=== PATIENT | male | born 1935 | race Caucasian/White ===

== ENCOUNTER 2020-08-26 23:32 | Observation (INO) | payer MEDICARE, BC ==
[~2020-08-26] VITALS: Ht 167.6 cm; Wt 56.5 kg
[~2020-08-26 23:32] MED LIST: ACET325T9 PO; ATOR20TA58 PO; DILT60TA3 PO; RAMI10CA53 PO
[2020-08-27] MEDS ORDERED: IV NORMAL SALINE 1000ML BAG 1,000 ML IV SCH
--- NOTE | 2020-08-27 00:17 | RAD ---
XR CHEST 1V Clinical History: Reason: CHEST PAIN ER#23 / Spl. Instructions: / History: Technique: AP view of the chest was obtained at 08/26/2020 11:56 PM. Comparison: None. Findings: There is a left-sided pacemaker. There is air projecting over the lower chest which could be within t he pericardium or could be related to a large hernia. The heart size is difficult to assess. The pulm onary vessels appear normal. There is a curvilinear opacity over the upper left lung which is felt to be a skinfold. Impression: 1. Air projecting over the lower lungs. It is unclear if this could be air within the pericardium whi ch could cause tamponade or if this could be a large diaphragmatic hernia. Comparison to an old chest x-ray would be very helpful. 2. No pneumothorax. Electronically signed by: Jonah Rowley III, MD (08/27/2020 12:15 AM) [facility]
[2020-08-27 00:20] LABS: CALCIUM 9.5 mg/dL (8.5-10.1); CREATININE 0.8 mg/dL (0.7-1.3); GFR 91.7; POTASSIUM 4.7 mmol/L (3.5-5.1)
[2020-08-27 00:21] LABS: BASO % 0 % (0-3); EOS # 0.1 x10^3/uL (0.0-0.7); EOS % 1 % (0-3); HEMATOCRIT 45.3 % (39.0-53.0); HEMOGLOBIN 15.1 g/dL (13.0-17.5); LYMPH # 1.1 x10^3/uL (1.0-4.8); LYMPH % 8 % (24-48); MEAN CORPUSCULAR HEMOGLOBIN 32 pg (25-35); MEAN CORPUSCULAR HGB CONC 33 g/dL (31-37); MEAN CORPUSCULAR VOLUME 95 fL (79-100); MONO # 0.8 x10^3/uL (0.0-1.1); MONO % 6 % (0-9); NEUT # 11.5 x10^3/uL (1.8-7.7); NEUT % 85 % (31-73); PLATELET COUNT 172 x10^3/uL (140-400); RED BLOOD COUNT 4.79 x10^6/uL (4.30-5.70); RED CELL DISTRIBUTION WIDTH 14.1 % (11.5-14.5); WHITE BLOOD COUNT 13.5 x10^3/uL (4.0-11.0)
[2020-08-27 00:26] LABS: ALBUMIN 4.1 g/dL (3.4-5.0); ALBUMIN/GLOBULIN RATIO 1.9 (1.0-1.7); MAGNESIUM 2.3 mg/dL (1.8-2.4); TOTAL PROTEIN 6.3 g/dL (6.4-8.2)
[2020-08-27] MEDS ORDERED: METOCLOPRAMIDE HCL 10 MG/2 ML VIAL. IVP ONE (00:30)
[2020-08-27] MEDS ORDERED: ACETAMINOPHEN 500 MG TABLET PO ONE (01:15)
[2020-08-27] MEDS ORDERED: MORPHINE SULFATE 4 MG/ML VIAL. IV ONE (01:30)
--- NOTE | 2020-08-27 01:52 | EKG ---
[facility] [address] [place] [address] Test Date: 2020-08-26 Test Time: 23:47:35 Pat Name: APRYL DELGADO Department: Room: Gender: M Lpn Home Health: : 1935 Requested By: KEN JIMENEZ Order Number: [id number] Reading MD: Measurements Intervals [place] Rate: 70 P: ND: QRS: -60 QRSD: 148 T: 117 QT: 472 QTc: 513 Interpretive Statements REGULAR RHYTHM, NO P WAVE FOUND ABNORMAL LEFT AXIS DEVIATION NON SPECIFIC INTRAVENTRICULAR BLOCK CONSIDER RIGHT VENTRICULAR HYPERTROPHY ABNORMAL ECG RI6.01 No previous ECG available for comparison
--- NOTE | 2020-08-27 02:42 | PHYS DOC ---
Past Medical History Past Medical History: CAD, CHF Past Surgical History: Other Additional Past Surgical Histo: Pt does not remember Smoking Status: Never Smoker Alcohol Use: None Adult General Chief Complaint Chief Complaint: CHEST PAIN HPI HPI Patient is a 84 year old male with a past medical history of coronary artery disease, defibrillator placement, hypertension presenting the emergency d epartment new onset chest pain. Patient states that at 8:30 PM yesterday and started noting pain to left anterior chest with radiation to left shoulder as well as the right shoulder. States that it was associated with mild intermittent nausea without any episodes of vomiting. Denies any dizziness or lightheadedness. Patient was given 2 nitro and symptoms improved by the time he arrived to the emergency department. Patient states that his symptoms remind him of his prior heart attack. Does note he had a cough for the last few days but denies any shortness of breath. Review of Systems Review of Systems Constitutional: Denies fever or chills [] Eyes: Denies change in visual acuity, redness, or eye pain [] HENT: Denies nasal congestion or sore throat [] Respiratory: Denies cough or shortness of breath [] Cardiovascular: No additional information not addressed in HPI [] GI: Denies abdominal pain, nausea, vomiting, bloody stools or diarrhea [] : Denies dysuria or hematuria [] Musculoskeletal: Denies back pain or joint pain [] Integument: Denies rash or skin lesions [] Neurologic: Denies headache, focal weakness or sensory changes [] Endocrine: Denies polyuria or polydipsia [] All other systems were reviewed and found to be within normal limits, except as documented in this note. Current Medications Current Medications Current Medications Medications (Trade) Dose Ordered Sig/Prince Start Time Stop Time Status Last Admin Dose Admin Acetaminophen (Tylenol) 1,000 mg 1X ONCE 08/27/20 01:15 08/27/20 01:16 DC Metoclopramide HCl (Reglan Vial) 10 mg 1X ONCE 08/27/20 00:30 08/27/20 00:31 DC 08/27/20 00:23 10 MG Morphine Sulfate (Morphine Sulfate) 4 mg 1X ONCE 08/27/20 01:30 08/27/20 01:31 DC 08/27/20 01:22 4 MG Sodium Chloride 1,000 ml @ 1,000 mls/hr Q1H 08/27/20 00:00 08/27/20 00:59 DC 08/27/20 00:23 1,000 MLS/HR Allergies Allergies Allergies Coded Allergies Type Severity Reaction Last Updated Verified ciprofloxacin Allergy Unknown 07/16/14 No Physical Exam Physical Exam Constitutional: Well developed, well nourished, no acute distress, non-toxic appearance. [] HENT: Normocephalic, atraumatic, bilateral external ears normal, oropharynx moist, no oral exudates, nose normal. [] Eyes: PERRLA, EOMI, conjunctiva normal, no discharge. [] Neck: Normal range of motion, no tenderness, supple, no stridor. [] Cardiovascular:Heart rate regular rhythm, no murmur [] Lungs & Thorax: Bilateral breath sounds clear to auscultation [] Abdomen: Bowel sounds normal, soft, no tenderness, no masses, no pulsatile masses. [] Skin: Warm, dry, no erythema, no rash. [] Back: No tenderness, no CVA tenderness. [] Extremities: No tenderness, no cyanosis, no clubbing, ROM intact, no edema. [] Neurologic: Alert and oriented X 3, normal motor function, normal sensory function, no focal deficits noted. [] Psychologic: Affect normal, judgement normal, mood normal. [] Current Patient Data Vital Signs Vital Signs Date Time Temp Pulse Resp B/P (MAP) Pulse Ox O2 Delivery O2 Flow Rate FiO2 08/26/20 23:35 98.2 72 16 126/86 (99) Room Air 98.2 Lab Values Laboratory Tests Test 08/27/20 00:05 White Blood Count 13.5 x10^3/uL (4.0-11.0) H Red Blood Count 4.79 x10^6/uL (4.30-5.70) Hemoglobin 15.1 g/dL (13.0-17.5) Hematocrit 45.3 % (39.0-53.0) Mean Corpuscular Volume 95 fL (79-100) Mean Corpuscular Hemoglobin 32 pg (25-35) Mean Corpuscular Hemoglobin Concent 33 g/dL (31-37) Red Cell Distribution Width 14.1 % (11.5-14.5) Platelet Count 172 x10^3/uL (140-400) Neutrophils (%) (Auto) 85 % (31-73) H Lymphocytes (%) (Auto) 8 % (24-48) L Monocytes (%) (Auto) 6 % (0-9) Eosinophils (%) (Auto) 1 % (0-3) Basophils (%) (Auto) 0 % (0-3) Neutrophils # (Auto) 11.5 x10^3/uL (1.8-7.7) H Lymphocytes # (Auto) 1.1 x10^3/uL (1.0-4.8) Monocytes # (Auto) 0.8 x10^3/uL (0.0-1.1) Eosinophils # (Auto) 0.1 x10^3/uL (0.0-0.7) Basophils # (Auto) 0.0 x10^3/uL (0.0-0.2) Platelet Estimate Pending Sodium Level 144 mmol/L (136-145) Potassium Level 4.7 mmol/L (3.5-5.1) Chloride Level 109 mmol/L (98-107) H Carbon Dioxide Level 27 mmol/L (21-32) Anion Gap 8 (6-14) Blood Urea Nitrogen 21 mg/dL (8-26) Creatinine 0.8 mg/dL (0.7-1.3) Estimated GFR (Cockcroft-Gault) 91.7 BUN/Creatinine Ratio 26 (6-20) H Glucose Level 145 mg/dL (70-99) H Calcium Level 9.5 mg/dL (8.5-10.1) Magnesium Level 2.3 mg/dL (1.8-2.4) Total Bilirubin 1.0 mg/dL (0.2-1.0) Aspartate Amino Transferase (AST) 32 U/L (15-37) Alanine Aminotransferase (ALT) 41 U/L (16-63) Alkaline Phosphatase 69 U/L (46-116) Troponin I Quantitative < 0.017 ng/mL (0.000-0.055) Total Protein 6.3 g/dL (6.4-8.2) L Albumin 4.1 g/dL (3.4-5.0) Albumin/Globulin Ratio 1.9 (1.0-1.7) H Lipase 107 U/L (73-393) Laboratory Tests 08/27/20 00:05 Laboratory Tests 08/27/20 00:05 EKG EKG [] Radiology/Procedures Radiology/Procedures XR CHEST 1V Clinical History: Reason: CHEST PAIN ER#23 / Spl. Instructions: / History: Technique: AP view of the chest was obtained at 08/26/2020 11:56 PM. Comparison: None. Findings: There is a left-sided pacemaker. There is air projecting over the lower chest which could be within the pericardium or could be related to a large hernia. The heart size is difficult to assess. The pulmonary vessels appear normal. There is a curvilinear opacity over the upper left lung which is felt to be a skinfold. Impression: 1. Air projecting over the lower lungs. It is unclear if this could be air within the pericardium which could cause tamponade or if this could be a large diaphragmatic hernia. Comparison to an old chest x-ray would be very helpful. 2. No pneumothorax. Electronically signed by: Suman Rowley III, MD (08/27/2020 12:15 AM) [facility] Course & Med Decision Making Course & Med Decision Making Pertinent Labs and Imaging studies reviewed. (See chart for details) 84M presenting with new onset of chest pain which is raise concern for acute co ronary syndrome. Work-up was obtained and troponin at this time is negative. EKG without any evidence of ST elevation MO. Because the patient's significant cardiac history will plan for admission for chest pain observation. Dragon Disclaimer Dragon Disclaimer This electronic medical record was generated, in whole or in part, using a voice recognition dictation system. Departure Departure Impression: Primary Impression: Chest pain Disposition: ADMITTED INPATIENT Condition: STABLE Referrals: SUMAN ARRIETA (PCP) KEN JIMENEZ MD Aug 27, 2020 02:42
[2020-08-27] MEDS ORDERED: ONDANSETRON PF 4 MG/2 ML VIAL. IV PRN (02:45)
[2020-08-27 03:22] LABS: % BANDS 8 % (0-9); % SEGS 77 % (35-66); PLT ESTIMATE ADEQUATE (ADEQUATE)
[2020-08-27 03:23] LABS: % LYMPHS 9 % (24-48); % MONOS 6 % (0-10)
[2020-08-27 03:59] VITALS: BP 133/86
[2020-08-27 07:00] VITALS: BP 130/72
--- NOTE | 2020-08-27 08:08 | PDOC1 ---
History and Physical Date of Admission Date of Admission DATE: 08/27/20 TIME: 08:04 Identification/Chief Complaint Chief Complaint Chest pain Source Source: Patient History of Present Illness History of Present Illness Mr Resendez is an 84yo M w/ PMHx SSS s/p PPM 2006, PUD s/p GI bleed and h. pylori treatment, persistent afib, HLD, HTN, CAD s/p LAD stenting remotely who presents to ED c/o left anterior chest pain that began at 2030 in the evening while watching television after eating jello for dinner. Had pain to left anterior chest with radiation to left shoulder as well as the right shoulder. States that it was associated with mild intermittent nausea without any episodes of vomiting. Denies any dizziness or lightheadedness. S/p 2 nitro and symptoms improved by the time he arrived to the emergency department. He received only 1 dose of morphine and it did not recur. Patient states that his symptoms remind him of his prior heart attack. Does note he had a cough for the last few days but denies any shortness of breath. He does have hiatal hernia. His biggest concern was radiation to the left shoulder. Chest radiograph no acute findings about a very large hiatal hernia. EKG without any evidence of ST elevation [place]. pacer spikes, no apparent p-waves visible WBC 13.5, Hb 15.1, platelets 172, NA 144, K4.7, BUN 21, CR 0.8, glucose 145, troponin 0, lipase 107 albumin 4.1 Admitted for observation given his cardiac history. Past Medical History Cardiovascular: AFIB, CAD, HTN, Hyperlipidemia GI: GERD, GI bleed, Gastritis, Peptic Ulcer disease Past Surgical History Past Surgical History: Pacemaker Family History Family History: Family History Unknown Social History Smoke: No ALCOHOL: none Drugs: None Current Problem List Problem List Problems Medical Problems: (1) Chest pain Status: Acute Current Medications Current Medications Current Medications Sodium Chloride 1,000 ml @ 1,000 mls/hr Q1H IV Last administered on 08/27/20at 00:23; Start 08/27/20 at 00:00; Stop 08/27/20 at 00:59; Status DC Metoclopramide HCl (Reglan Vial) 10 mg 1X ONCE IVP Last administered on 08/27/20at 00:23; Start 08/27/20 at 00:30; Stop 08/27/20 at 00:31; Status DC Acetaminophen (Tylenol) 1,000 mg 1X ONCE PO ; Start 08/27/20 at 01:15; Stop 08/27/20 at 01:16; Status DC Morphine Sulfate (Morphine Sulfate) 4 mg 1X ONCE IV Last administered on 08/27/20at 01:22; Start 08/27/20 at 01:30; Stop 08/27/20 at 01:31; Status DC Ondansetron HCl (Zofran) 4 mg PRN Q8HRS PRN IV NAUSEA/VOMITING; Start 08/27/20 at 02:45; Stop 08/28/20 at 02:44 Active Scripts Active Reported Tylenol (Acetaminophen) 325 Mg Tablet 500 Mg PO PRN TID PRN Atorvastatin Calcium 20 Mg Tablet 80 Mg PO HS Cardizem Tablet (Diltiazem Hcl) 60 Mg Tablet 120 Mg PO DAILY Ramipril 10 Mg Capsule 1 Cap PO DAILY Allergies Allergies: Coded Allergies: ciprofloxacin (Unverified Allergy, Unknown, 07/16/14) ROS General: YES: Fatigue, Malaise; No: Chills, Night Sweats, Appetite, Other PSYCHOLOGICAL ROS: No: Anxiety, Behavioral Disorder, Concentration difficultie, Decreased libido, Depression, Disorientation, Hallucinations, Hostility, Irritablity, Memory difficulties, Mood Swings, Obsessive thoughts, Physical abuse, Sexual abuse, Sleep disturbances, Suicidal ideation, Other Eyes: No Blurry vision, No Decreased vision, No Double vision, No Dry eyes, No Excessive tearing, No Eye Pain, No Itchy Eyes, No Loss of vision, No P hotophobia, No Scotomata, No Uses contacts, No Uses glasses, No Other HEENT: No: Heacaches, Visual Changes, Hearing change, Nasal congestion, Nasal discharge, Oral lesions, Sinus pain, Sore Throat, Epistaxis, Sneezing, Snoring, Tinnitus, Vertigo, Vocal changes, Other ALLERGY AND IMMUNOLOGY: No: Hives, Insect Bite Sensitivity, Itchy/Watery Eyes, Nasal Congestion, Post Nasal Drip, Seasonal Allergies, Other Hematological and Lymphatic: No: Bleeding Problems, Blood Clots, Blood Transfusions, Brusing, Night Sweats, Pallor, Swollen Lymph Nodes, Other ENDOCRINE: No: Breast Changes, Galactorrhea, Hair Pattern Changes, Hot Flashes, Malaise/lethargy, Mood Swings, Palpitations, Polydipsia/polyuria, Skin Changes, Temperature Intolerance, Unexpected Weight Changes, Other Breast: No New/Changing Breast Lumps, No Nipple changes, No Nipple discharge, No Other Respiratory: No: Cough, Hemoptysis, Orthopnea, Pleuritic Pain, Shortness of breath, SOB with excertion, Sputum Changes, Stridor, Tachypnea, Wheezing, Other Cardiovascular: yes Chest Pain; No Palpitations, No Orthopnea, No Paroxysmal Noc. Dyspnea, No Edema, No Lt Headedness, No Other Gastrointestinal: No Nausea, No Vomiting, No Abdominal Pain, No Diarrhea, No Constipation, No Melena, No Hematochezia, No Other Genitourinary: No Dysuria, No Frequency, No Incontinence, No Hematuria, No Retention, No Discharge, No Urgency, No Pain, No Flank Pain, No Other, No , No , No , No , No , No , No Musculoskeletal: No Gait Disturbance, No Joint Pain, No Joint Stiffness, No Joint Swelling, No Muscle Pain, No Muscular Weakness, No Pain In:, No Swelling In:, No Other Neurological: No Behavorial Changes, No Bowel/Bladder ControlChng, No Confusion, No Dizziness, No Gait Disturbance, No Headaches, No Impaired Coord/balance, No Memory Loss, No Numbness/Tingling, No Seizures, No Speech Problems, No Tremors, No Visual Changes, No Weakness, No Other Skin: No Dry Skin, No Eczema, No Hair Changes, No Lumps, No Mole Changes, No Mottling, No Nail Changes, No Pruritus, No Rash, No Skin Lesion Changes, No Other, No Acne Physical Exam General: Alert, Oriented X3, Cooperative, No acute distress HEENT: Atraumatic, PERRLA, EOMI, Mucous membr. moist/pink Lungs: Clear to auscultation, Normal air movement Heart: S1S2, irregularly irregular Abdomen: Normal bowel sounds, Soft, No tenderness, No hepatosplenomegaly, No masses Rectal Exam: not examined Extremities: No clubbing, No cyanosis, No edema, Normal pulses, No tenderness/swelling Skin: No rashes, No breakdown, No significant lesion Neuro: Normal gait, Normal speech, Strength at 5/5 X4 ext, Normal tone, Sensation intact, Cranial nerves 3-12 NL, Reflexes 2+ Psych/Mental Status: Mental status NL, Mood NL Vitals Vitals Vital Signs Date Time Temp Pulse Resp B/P (MAP) Pulse Ox O2 Delivery O2 Flow Rate FiO2 08/27/20 03:59 97.6 84 18 133/86 (102) 98 Room Air 97.6 Labs Labs Laboratory Tests Test 08/27/20 00:05 White Blood Count 13.5 x10^3/uL (4.0-11.0) Red Blood Count 4.79 x10^6/uL (4.30-5.70) Hemoglobin 15.1 g/dL (13.0-17.5) Hematocrit 45.3 % (39.0-53.0) Mean Corpuscular Volume 95 fL (79-100) Mean Corpuscular Hemoglobin 32 pg (25-35) Mean Corpuscular Hemoglobin Concent 33 g/dL (31-37) Red Cell Distribution Width 14.1 % (11.5-14.5) Platelet Count 172 x10^3/uL (140-400) Neutrophils (%) (Auto) 85 % (31-73) Lymphocytes (%) (Auto) 8 % (24-48) Monocytes (%) (Auto) 6 % (0-9) Eosinophils (%) (Auto) 1 % (0-3) Basophils (%) (Auto) 0 % (0-3) Neutrophils # (Auto) 11.5 x10^3/uL (1.8-7.7) Lymphocytes # (Auto) 1.1 x10^3/uL (1.0-4.8) Monocytes # (Auto) 0.8 x10^3/uL (0.0-1.1) Eosinophils # (Auto) 0.1 x10^3/uL (0.0-0.7) Basophils # (Auto) 0.0 x10^3/uL (0.0-0.2) Segmented Neutrophils % 77 % (35-66) Band Neutrophils % 8 % (0-9) Lymphocytes % 9 % (24-48) Monocytes % 6 % (0-10) Platelet Estimate Adequate (ADEQUATE) Sodium Level 144 mmol/L (136-145) Potassium Level 4.7 mmol/L (3.5-5.1) Chloride Level 109 mmol/L (98-107) Carbon Dioxide Level 27 mmol/L (21-32) Anion Gap 8 (6-14) Blood Urea Nitrogen 21 mg/dL (8-26) Creatinine 0.8 mg/dL (0.7-1.3) Estimated GFR (Cockcroft-Gault) 91.7 BUN/Creatinine Ratio 26 (6-20) Glucose Level 145 mg/dL (70-99) Calcium Level 9.5 mg/dL (8.5-10.1) Magnesium Level 2.3 mg/dL (1.8-2.4) Total Bilirubin 1.0 mg/dL (0.2-1.0) Aspartate Amino Transf (AST/SGOT) 32 U/L (15-37) Alanine Aminotransferase (ALT/SGPT) 41 U/L (16-63) Alkaline Phosphatase 69 U/L (46-116) Troponin I Quantitative < 0.017 ng/mL (0.000-0.055) Total Protein 6.3 g/dL (6.4-8.2) Albumin 4.1 g/dL (3.4-5.0) Albumin/Globulin Ratio 1.9 (1.0-1.7) Lipase 107 U/L (73-393) Laboratory Tests Test 08/27/20 00:05 White Blood Count 13.5 x10^3/uL (4.0-11.0) Red Blood Count 4.79 x10^6/uL (4.30-5.70) Hemoglobin 15.1 g/dL (13.0-17.5) Hematocrit 45.3 % (39.0-53.0) Mean Corpuscular Volume 95 fL (79-100) Mean Corpuscular Hemoglobin 32 pg (25-35) Mean Corpuscular Hemoglobin Concent 33 g/dL (31-37) Red Cell Distribution Width 14.1 % (11.5-14.5) Platelet Count 172 x10^3/uL (140-400) Neutrophils (%) (Auto) 85 % (31-73) Lymphocytes (%) (Auto) 8 % (24-48) Monocytes (%) (Auto) 6 % (0-9) Eosinophils (%) (Auto) 1 % (0-3) Basophils (%) (Auto) 0 % (0-3) Neutrophils # (Auto) 11.5 x10^3/uL (1.8-7.7) Lymphocytes # (Auto) 1.1 x10^3/uL (1.0-4.8) Monocytes # (Auto) 0.8 x10^3/uL (0.0-1.1) Eosinophils # (Auto) 0.1 x10^3/uL (0.0-0.7) Basophils # (Auto) 0.0 x10^3/uL (0.0-0.2) Segmented Neutrophils % 77 % (35-66) Band Neutrophils % 8 % (0-9) Lymphocytes % 9 % (24-48) Monocytes % 6 % (0-10) Platelet Estimate Adequate (ADEQUATE) Sodium Level 144 mmol/L (136-145) Potassium Level 4.7 mmol/L (3.5-5.1) Chloride Level 109 mmol/L (98-107) Carbon Dioxide Level 27 mmol/L (21-32) Anion Gap 8 (6-14) Blood Urea Nitrogen 21 mg/dL (8-26) Creatinine 0.8 mg/dL (0.7-1.3) Estimated GFR (Cockcroft-Gault) 91.7 BUN/Creatinine Ratio 26 (6-20) Glucose Level 145 mg/dL (70-99) Calcium Level 9.5 mg/dL (8.5-10.1) Magnesium Level 2.3 mg/dL (1.8-2.4) Total Bilirubin 1.0 mg/dL (0.2-1.0) Aspartate Amino Transf (AST/SGOT) 32 U/L (15-37) Alanine Aminotransferase (ALT/SGPT) 41 U/L (16-63) Alkaline Phosphatase 69 U/L (46-116) Troponin I Quantitative < 0.017 ng/mL (0.000-0.055) Total Protein 6.3 g/dL (6.4-8.2) Albumin 4.1 g/dL (3.4-5.0) Albumin/Globulin Ratio 1.9 (1.0-1.7) Lipase 107 U/L (73-393) Images Images Chest pain: There is a left-sided pacemaker. There is air projecting over the lower chest which could be within the pericardium or could be related to a large hernia. The heart size is difficult to assess. The pulmonary vessels appear normal. There is a curvilinear opacity over the upper left lung which is felt to be a skinfold. Impression: 1. Air projecting over the lower lungs. It is unclear if this could be air within the pericardium which could cause tamponade or if this could be a large diaphragmatic hernia. Comparison to an old chest x-ray would be very helpful. 2. No pneumothorax. VTE Prophylaxis Ordered VTE Prophylaxis Devices: No VTE Pharmacological Prophylaxi: Yes Assessment/Plan Assessment/Plan A/P: Chest pain with atypical features - CO ruled out. With GI history likely this was esophageal spasm. Will f/u with his GI physician. outpatient ischemic evaluation per cardiology Sick sinus syndrome s/p permanent pacemaker implantation in 2006 with more recent generator change in 2014. Persistent atrial fibrillation - heart rate is well controlled. PUD - GI bleeding and h. pylori previously. Hiatal hernia - significant on examination. May have associated esophageal spasm, will return to GI outpatient Hyperlipidemia - Continue statin therapy Hypertension - Controlled CAD s/p LAD stenting remotely FEN - Cardiac diet PPX - lovenox FULL CODE DIspo - observation. Awaiting cardiac input Justifications for Admission Other Justification AMBROSIO LECHUGA MD Aug 27, 2020 08:08
--- NOTE | 2020-08-27 10:00 | PDOC2 ---
CONSULT Date of Consult Date of Consult DATE: 08/27/20 TIME: 09:46 Reason for Consult Reason for Consult: Chest pain Referring Physician Referring Physician: Dr. Christianson Identification/Chief Complaint Chief Complaint Chest pain Source Source: Chart review, Patient History of Present Illness Reason for Visit: 84-year-old male with history of coronary disease s/p PCI/stent to LAD, atrial fibrillation and sick sinus syndrome s/p permanent pacemaker implantation presented with retrosternal chest pain that he described as sharp in nature, 8/10 severity radiating to left shoulder that started when he was watching television last night. His symptoms did not improve with nitroglycerin given by EMS but resolved after he was given morphine in our ED. He is presently chest pain-free. He denied any orthopnea/PND, palpitations or syncope. Past Medical History Past Medical History Coronary artery disease s/p PCI/stent placement to LAD in 2006 Hypertension Hyperlipidemia Sick sinus syndrome s/p permanent pacemaker implantation Atrial fibrillation Past Surgical History Past Surgical History Permanent pacemaker implantation in 2006 with more recent generator change in 2014 Cataract surgery Hernia repair Appendectomy Hip replacement surgery Family History Family History Positive for hypertension and negative for premature coronary artery disease Social History Social History Patient denied any smoking, drug use but admitted to social intake of alcohol Current Problem List Problem List Problems Medical Problems: (1) Chest pain Status: Acute Current Medications Current Medications Current Medications Sodium Chloride 1,000 ml @ 1,000 mls/hr Q1H IV Last administered on 08/27/20at 00:23; Start 08/27/20 at 00:00; Stop 08/27/20 at 00:59; Status DC Metoclopramide HCl (Reglan Vial) 10 mg 1X ONCE IVP Last administered on 08/27/20at 00:23; Start 08/27/20 at 00:30; Stop 08/27/20 at 00:31; Status DC Acetaminophen (Tylenol) 1,000 mg 1X ONCE PO ; Start 08/27/20 at 01:15; Stop 08/27/20 at 01:16; Status DC Morphine Sulfate (Morphine Sulfate) 4 mg 1X ONCE IV Last administered on 08/27/20at 01:22; Start 08/27/20 at 01:30; Stop 08/27/20 at 01:31; Status DC Ondansetron HCl (Zofran) 4 mg PRN Q8HRS PRN IV NAUSEA/VOMITING; Start 08/27/20 at 02:45; Stop 08/28/20 at 02:44 Active Scripts Active Reported Tylenol (Acetaminophen) 325 Mg Tablet 500 Mg PO PRN TID PRN Atorvastatin Calcium 20 Mg Tablet 80 Mg PO HS Cardizem Tablet (Diltiazem Hcl) 60 Mg Tablet 120 Mg PO DAILY Ramipril 10 Mg Capsule 1 Cap PO DAILY Allergies Allergies: Coded Allergies: ciprofloxacin (Unverified Allergy, Unknown, 07/16/14) ROS PSYCHOLOGICAL ROS: No: Hallucinations Eyes: No Loss of vision HEENT: No: Epistaxis Respiratory: No: Hemoptysis, Shortness of breath Cardiovascular: yes Chest Pain Gastrointestinal: No Vomiting, No Diarrhea Genitourinary: No Hematuria Neurological: No Seizures Skin: No Rash Physical Exam General: Alert, Oriented X3 HEENT: Atraumatic Lungs: Clear to auscultation Heart: Regular rate Abdomen: Soft Extremities: No edema Neuro: Normal speech Psych/Mental Status: Mood NL Vitals VITALS Vital Signs Date Time Temp Pulse Resp B/P (MAP) Pulse Ox O2 Delivery O2 Flow Rate FiO2 08/27/20 07:00 97.3 71 16 130/72 (91) 94 Room Air 97.3 Labs Labs Laboratory Tests Test 08/27/20 00:05 White Blood Count 13.5 x10^3/uL (4.0-11.0) Red Blood Count 4.79 x10^6/uL (4.30-5.70) Hemoglobin 15.1 g/dL (13.0-17.5) Hematocrit 45.3 % (39.0-53.0) Mean Corpuscular Volume 95 fL (79-100) Mean Corpuscular Hemoglobin 32 pg (25-35) Mean Corpuscular Hemoglobin Concent 33 g/dL (31-37) Red Cell Distribution Width 14.1 % (11.5-14.5) Platelet Count 172 x10^3/uL (140-400) Neutrophils (%) (Auto) 85 % (31-73) Lymphocytes (%) (Auto) 8 % (24-48) Monocytes (%) (Auto) 6 % (0-9) Eosinophils (%) (Auto) 1 % (0-3) Basophils (%) (Auto) 0 % (0-3) Neutrophils # (Auto) 11.5 x10^3/uL (1.8-7.7) Lymphocytes # (Auto) 1.1 x10^3/uL (1.0-4.8) Monocytes # (Auto) 0.8 x10^3/uL (0.0-1.1) Eosinophils # (Auto) 0.1 x10^3/uL (0.0-0.7) Basophils # (Auto) 0.0 x10^3/uL (0.0-0.2) Segmented Neutrophils % 77 % (35-66) Band Neutrophils % 8 % (0-9) Lymphocytes % 9 % (24-48) Monocytes % 6 % (0-10) Platelet Estimate Adequate (ADEQUATE) Sodium Level 144 mmol/L (136-145) Potassium Level 4.7 mmol/L (3.5-5.1) Chloride Level 109 mmol/L (98-107) Carbon Dioxide Level 27 mmol/L (21-32) Anion Gap 8 (6-14) Blood Urea Nitrogen 21 mg/dL (8-26) Creatinine 0.8 mg/dL (0.7-1.3) Estimated GFR (Cockcroft-Gault) 91.7 BUN/Creatinine Ratio 26 (6-20) Glucose Level 145 mg/dL (70-99) Calcium Level 9.5 mg/dL (8.5-10.1) Magnesium Level 2.3 mg/dL (1.8-2.4) Total Bilirubin 1.0 mg/dL (0.2-1.0) Aspartate Amino Transf (AST/SGOT) 32 U/L (15-37) Alanine Aminotransferase (ALT/SGPT) 41 U/L (16-63) Alkaline Phosphatase 69 U/L (46-116) Troponin I Quantitative < 0.017 ng/mL (0.000-0.055) Total Protein 6.3 g/dL (6.4-8.2) Albumin 4.1 g/dL (3.4-5.0) Albumin/Globulin Ratio 1.9 (1.0-1.7) Lipase 107 U/L (73-393) Laboratory Tests Test 08/27/20 00:05 White Blood Count 13.5 x10^3/uL (4.0-11.0) Red Blood Count 4.79 x10^6/uL (4.30-5.70) Hemoglobin 15.1 g/dL (13.0-17.5) Hematocrit 45.3 % (39.0-53.0) Mean Corpuscular Volume 95 fL (79-100) Mean Corpuscular Hemoglobin 32 pg (25-35) Mean Corpuscular Hemoglobin Concent 33 g/dL (31-37) Red Cell Distribution Width 14.1 % (11.5-14.5) Platelet Count 172 x10^3/uL (140-400) Neutrophils (%) (Auto) 85 % (31-73) Lymphocytes (%) (Auto) 8 % (24-48) Monocytes (%) (Auto) 6 % (0-9) Eosinophils (%) (Auto) 1 % (0-3) Basophils (%) (Auto) 0 % (0-3) Neutrophils # (Auto) 11.5 x10^3/uL (1.8-7.7) Lymphocytes # (Auto) 1.1 x10^3/uL (1.0-4.8) Monocytes # (Auto) 0.8 x10^3/uL (0.0-1.1) Eosinophils # (Auto) 0.1 x10^3/uL (0.0-0.7) Basophils # (Auto) 0.0 x10^3/uL (0.0-0.2) Segmented Neutrophils % 77 % (35-66) Band Neutrophils % 8 % (0-9) Lymphocytes % 9 % (24-48) Monocytes % 6 % (0-10) Platelet Estimate Adequate (ADEQUATE) Sodium Level 144 mmol/L (136-145) Potassium Level 4.7 mmol/L (3.5-5.1) Chloride Level 109 mmol/L (98-107) Carbon Dioxide Level 27 mmol/L (21-32) Anion Gap 8 (6-14) Blood Urea Nitrogen 21 mg/dL (8-26) Creatinine 0.8 mg/dL (0.7-1.3) Estimated GFR (Cockcroft-Gault) 91.7 BUN/Creatinine Ratio 26 (6-20) Glucose Level 145 mg/dL (70-99) Calcium Level 9.5 mg/dL (8.5-10.1) Magnesium Level 2.3 mg/dL (1.8-2.4) Total Bilirubin 1.0 mg/dL (0.2-1.0) Aspartate Amino Transf (AST/SGOT) 32 U/L (15-37) Alanine Aminotransferase (ALT/SGPT) 41 U/L (16-63) Alkaline Phosphatase 69 U/L (46-116) Troponin I Quantitative < 0.017 ng/mL (0.000-0.055) Total Protein 6.3 g/dL (6.4-8.2) Albumin 4.1 g/dL (3.4-5.0) Albumin/Globulin Ratio 1.9 (1.0-1.7) Lipase 107 U/L (73-393) Assessment/Plan Assessment/Plan 1. Chest pain with atypical features, relieved after he was given morphine in the ED. Myocardial infarction has been ruled out. Due to his history of coronary artery disease with stent placement to LAD, we will plan for outpatient ischemic evaluation. 2. Sick sinus syndrome s/p permanent pacemaker implantation in 2006 with more recent generator change in 2014. Recent 2D echo in October 2019 showed normal LV systolic function with EF 55 to 60%. He denied any syncope or near syncope. Recent device check showed normal function. 3. Persistent atrial fibrillation: Recent device check showed that he has been in atrial fibrillation continuously since March 2020. His heart rate is well controlled. Since he is a poor candidate for long-term anticoagulation secondary to history of GI bleeding from peptic ulcer disease, we referred him to EP service for possible left atrial appendage closure. He was recently seen by EP service and was recommended the same but patient wanted to wait. 4. Hyperlipidemia: Continue statin therapy 5. Hypertension: Controlled Okay for DC from cardiac standpoint. We will arrange for outpatient stress test. Thank you for your consultation RADHA SORIA MD Aug 27, 2020 10:00
[2020-08-27 11:00] VITALS: BP 126/72
[2020-08-27 15:00] VITALS: BP 150/93
--- NOTE | 2020-08-27 15:52 | PDOC3 ---
Discharge Summary Visit Information Date of Admission: Aug 27, 2020 Date of Discharge: Aug 27, 2020 Admitting Diagnosis: Chest pain Final Diagnosis Problems Medical Problems: (1) Chest pain Status: Acute Brief Hospital Course Allergies Allergies Coded Allergies Type Severity Reaction Last Updated Verified ciprofloxacin Allergy Unknown 07/16/14 No Vital Signs Vital Signs Date Time Temp Pulse Resp B/P (MAP) Pulse Ox O2 Delivery O2 Flow Rate FiO2 08/27/20 11:00 97.6 62 16 126/72 (90) 96 Room Air 97.6 Lab Results Laboratory Tests Test 08/27/20 00:05 08/27/20 09:15 White Blood Count 13.5 x10^3/uL (4.0-11.0) Red Blood Count 4.79 x10^6/uL (4.30-5.70) Hemoglobin 15.1 g/dL (13.0-17.5) Hematocrit 45.3 % (39.0-53.0) Mean Corpuscular Volume 95 fL (79-100) Mean Corpuscular Hemoglobin 32 pg (25-35) Mean Corpuscular Hemoglobin Concent 33 g/dL (31-37) Red Cell Distribution Width 14.1 % (11.5-14.5) Platelet Count 172 x10^3/uL (140-400) Neutrophils (%) (Auto) 85 % (31-73) Lymphocytes (%) (Auto) 8 % (24-48) Monocytes (%) (Auto) 6 % (0-9) Eosinophils (%) (Auto) 1 % (0-3) Basophils (%) (Auto) 0 % (0-3) Neutrophils # (Auto) 11.5 x10^3/uL (1.8-7.7) Lymphocytes # (Auto) 1.1 x10^3/uL (1.0-4.8) Monocytes # (Auto) 0.8 x10^3/uL (0.0-1.1) Eosinophils # (Auto) 0.1 x10^3/uL (0.0-0.7) Basophils # (Auto) 0.0 x10^3/uL (0.0-0.2) Segmented Neutrophils % 77 % (35-66) Band Neutrophils % 8 % (0-9) Lymphocytes % 9 % (24-48) Monocytes % 6 % (0-10) Platelet Estimate Adequate (ADEQUATE) Sodium Level 144 mmol/L (136-145) Potassium Level 4.7 mmol/L (3.5-5.1) Chloride Level 109 mmol/L (98-107) Carbon Dioxide Level 27 mmol/L (21-32) Anion Gap 8 (6-14) Blood Urea Nitrogen 21 mg/dL (8-26) Creatinine 0.8 mg/dL (0.7-1.3) Estimated GFR (Cockcroft-Gault) 91.7 BUN/Creatinine Ratio 26 (6-20) Glucose Level 145 mg/dL (70-99) Calcium Level 9.5 mg/dL (8.5-10.1) Magnesium Level 2.3 mg/dL (1.8-2.4) Total Bilirubin 1.0 mg/dL (0.2-1.0) Aspartate Amino Transf (AST/SGOT) 32 U/L (15-37) Alanine Aminotransferase (ALT/SGPT) 41 U/L (16-63) Alkaline Phosphatase 69 U/L (46-116) Troponin I Quantitative < 0.017 ng/mL (0.000-0.055) 0.021 ng/mL (0.000-0.055) Total Protein 6.3 g/dL (6.4-8.2) Albumin 4.1 g/dL (3.4-5.0) Albumin/Globulin Ratio 1.9 (1.0-1.7) Lipase 107 U/L (73-393) Laboratory Tests Test 08/27/20 00:05 08/27/20 09:15 White Blood Count 13.5 x10^3/uL (4.0-11.0) Red Blood Count 4.79 x10^6/uL (4.30-5.70) Hemoglobin 15.1 g/dL (13.0-17.5) Hematocrit 45.3 % (39.0-53.0) Mean Corpuscular Volume 95 fL (79-100) Mean Corpuscular Hemoglobin 32 pg (25-35) Mean Corpuscular Hemoglobin Concent 33 g/dL (31-37) Red Cell Distribution Width 14.1 % (11.5-14.5) Platelet Count 172 x10^3/uL (140-400) Neutrophils (%) (Auto) 85 % (31-73) Lymphocytes (%) (Auto) 8 % (24-48) Monocytes (%) (Auto) 6 % (0-9) Eosinophils (%) (Auto) 1 % (0-3) Basophils (%) (Auto) 0 % (0-3) Neutrophils # (Auto) 11.5 x10^3/uL (1.8-7.7) Lymphocytes # (Auto) 1.1 x10^3/uL (1.0-4.8) Monocytes # (Auto) 0.8 x10^3/uL (0.0-1.1) Eosinophils # (Auto) 0.1 x10^3/uL (0.0-0.7) Basophils # (Auto) 0.0 x10^3/uL (0.0-0.2) Segmented Neutrophils % 77 % (35-66) Band Neutrophils % 8 % (0-9) Lymphocytes % 9 % (24-48) Monocytes % 6 % (0-10) Platelet Estimate Adequate (ADEQUATE) Sodium Level 144 mmol/L (136-145) Potassium Level 4.7 mmol/L (3.5-5.1) Chloride Level 109 mmol/L (98-107) Carbon Dioxide Level 27 mmol/L (21-32) Anion Gap 8 (6-14) Blood Urea Nitrogen 21 mg/dL (8-26) Creatinine 0.8 mg/dL (0.7-1.3) Estimated GFR (Cockcroft-Gault) 91.7 BUN/Creatinine Ratio 26 (6-20) Glucose Level 145 mg/dL (70-99) Calcium Level 9.5 mg/dL (8.5-10.1) Magnesium Level 2.3 mg/dL (1.8-2.4) Total Bilirubin 1.0 mg/dL (0.2-1.0) Aspartate Amino Transf (AST/SGOT) 32 U/L (15-37) Alanine Aminotransferase (ALT/SGPT) 41 U/L (16-63) Alkaline Phosphatase 69 U/L (46-116) Troponin I Quantitative < 0.017 ng/mL (0.000-0.055) 0.021 ng/mL (0.000-0.055) Total Protein 6.3 g/dL (6.4-8.2) Albumin 4.1 g/dL (3.4-5.0) Albumin/Globulin Ratio 1.9 (1.0-1.7) Lipase 107 U/L (73-393) Brief Hospital Course Mr Resendez is an 84yo M w/ PMHx SSS s/p PPM 2006, PUD s/p GI bleed and h. pylori treatment, persistent afib, HLD, HTN, CAD s/p LAD stenting remotely who presents to ED c/o left anterior chest pain that began at 2030 in the evening while watching television after eating jello for dinner. Had pain to left anterior chest with radiation to left shoulder as well as the right shoulder. States that it was associated with mild intermittent nausea without any episodes of vomiting. Denies any dizziness or lightheadedness. S/p 2 nitro and symptoms improved by the time he arrived to the emergency department. He received only 1 dose of morphine and it did not recur. Patient states that his symptoms remind him of his prior heart attack. Does note he had a cough for the last few days but denies any shortness of breath. He does have hiatal hernia. His biggest con cern was radiation to the left shoulder. Chest radiograph no acute findings about a very large hiatal hernia. EKG without any evidence of ST elevation [place]. pacer spikes, no apparent p-waves visible WBC 13.5, Hb 15.1, platelets 172, NA 144, K4.7, BUN 21, CR 0.8, glucose 145, troponin 0, lipase 107 albumin 4.1 Admitted for observation given his cardiac history. Seen by cardiology, pain resolved. Almost certainly esophageal spasm. Problem list: Chest pain with atypical features - [place] ruled out. With GI history likely this was esophageal spasm. Will f/u with his GI physician. outpatient ischemic evaluation per cardiology Sick sinus syndrome s/p permanent pacemaker implantation in 2006 with more recent generator change in 2014. Persistent atrial fibrillation - heart rate is well controlled. PUD - GI bleeding and h. pylori previously. Hiatal hernia - significant on examination. May have associated esophageal spasm, will return to GI outpatient Hyperlipidemia - Continue statin therapy Hypertension - Controlled CAD s/p LAD stenting remotely Consults: Cardiology Greater than 30 minutes spent on d/c home with self care. GI and cardiology out patient f/u Discharge Information Condition at Discharge: Improved Follow Up: Weeks (1) Disposition/Orders: D/C to Home Scheduled Atorvastatin Calcium (Atorvastatin Calcium) 20 Mg Tablet, 80 MG PO HS for CHOLESTROL, #30 Ref 5 (Reported) Entered as Reported by: Jayla Enriquez on 07/16/14803 Last Action: Edited on 08/27/20439 by TITO DUMONT Diltiazem Hcl (Cardizem Tablet) 60 Mg Tablet, 120 MG PO DAILY for FOR HYPERTENSION, #30 Ref 0 (Reported) Entered as Reported by: Jayla Enriquez on 07/16/14803 Last Action: Reviewed on 08/27/20439 by TITO DUMONT Ramipril (Ramipril) 10 Mg Capsule, 1 CAP PO DAILY, #30 Ref 5 (Reported) Entered as Reported by: Jayla Enriquez on 07/16/14803 Last Action: Reviewed on 08/27/20439 by TITO DUMONT Scheduled PRN Acetaminophen (Tylenol) 325 Mg Tablet, 500 MG PO PRN TID PRN for PAIN, (Reported) Entered as Reported by: Jayla Enriquez on 07/16/14803 Last Action: Edited on 08/27/20439 by TITO DUMONT Justicifation of Admission Dx: Justifications for Admission: Justification of Admission Dx: Yes CHF: Cardiac Arrhythmias AMBROSIO LECHUGA MD Aug 27, 2020 15:52
--- NOTE | 2020-08-27 16:10 | NUR ---
DISCHARGED PATIENT TO HOME. DISCHARGE INSTRUCTIONS GIVEN. PIV AND HEART MONITOR OFF. ESCORTED PATIENT OFF UNIT PER WHEELCHAIR INTO A PRIVATE TRUCK.
== END 2020-08-27 16:13 | disposition home or self-care (01) ==
LOC: ER 23:32 → 2 SOUTH 08-27 02:48
PROVIDERS: ADMIT Internal Medicine; ATTEND Internal Medicine
DX: R07.89 Other chest pain (principal); I49.5 Sick sinus syndrome; I10 Essential (primary) hypertension; E78.5 Hyperlipidemia, unspecified; I25.10 Atherosclerotic heart disease of native coronary artery without angina pectoris; I48.91 Unspecified atrial fibrillation; K27.9 Peptic ulcer, site unspecified, unspecified as acute or chronic, without hemorrhage or perforation; K44.9 Diaphragmatic hernia without obstruction or gangrene; I11.0 Hypertensive heart disease with heart failure; I50.9 Heart failure, unspecified; I25.2 Old myocardial infarction; I48.19 Other persistent atrial fibrillation; Z87.11 Personal history of peptic ulcer disease; Z95.0 Presence of cardiac pacemaker; Z95.5 Presence of coronary angioplasty implant and graft; Z96.649 Presence of unspecified artificial hip joint; Z98.49 Cataract extraction status, unspecified eye; Z98.890 Other specified postprocedural states; Z90.49 Acquired absence of other specified parts of digestive tract
CPT/HCPCS: 36415; 71045; 80053; 83690; 83735; 84484; 85007; 85025; 93005; 96361; 96374; 96375; 99285; G0378; J2270; J2765; J7030; G0379